=== PATIENT | female | born 2000 | race American Indian/Alaskan Native ===

== ENCOUNTER 2021-06-10 13:08 | Outpatient (CLI) | payer MEDICAID | END 2021-06-10 23:59 | disposition critical access hospital (66) | LOC: EMS 13:08 | DX: R41.0 Disorientation, unspecified (principal); R51.9 Headache, unspecified; M25.572 Pain in left ankle and joints of left foot; M25.532 Pain in left wrist; W18.2XXA Fall in (into) shower or empty bathtub, initial encounter; Y92.091 Bathroom in other non-institutional residence as the place of occurrence of the external cause | CPT/HCPCS: A0425; A0427; A0999 ==

== ENCOUNTER 2021-06-10 22:25 | Outpatient (CLI) | payer MEDICAID | END 2021-06-10 23:59 | disposition critical access hospital (66) | LOC: EMS 22:25 | DX: T65.91XA Toxic effect of unspecified substance, accidental (unintentional), initial encounter (principal) | CPT/HCPCS: A0425; A0429 ==

== ENCOUNTER 2021-06-10 22:44 | Emergency (ER) | payer MEDICAID ==
[2021-06-10] MEDS ORDERED: ONDANSETRON ODT 4 MG Prepack 2 TL PRN (22:48)
--- NOTE | 2021-06-10 22:51 | ED Physician Documentation ---
History of Present Illness - Stated complaint Stated Complaint: INGESTION OF HOT PACK JUICE - History obtained from History obtained from: Patient, EMS - Additonal information Additional information: Patient sent to the emergency department via EMS for chief complaint of exposure to contents of hot pack. The patient is staying [facility] and has a tooth that has been bothering her, so staff gave her a hot pack to use. However, it seems that when the box of hot packs was being cut open, a small cut occurred in the hot pack itself and the contents began to leak out onto the patient's cheek. She had her mouth open and a little bit of the contents also got on her tongue. The patient states that she immediately rinsed her mouth very well. Poison control was contacted and they stated that the contents were nontoxic and even if the whole packet was swallowed, the worst it would cause would be some nausea. However, the hospital nursing assistant of IT was wanted the patient sent to the emergency department anyway for evaluation. The patient states she is feeling completely fine. She has no symptoms whatsoever. No burning of her tongue. No nausea or abdominal pain. She has not vomited. No other complaints. Review of Systems Ten Systems: 10 systems reviewed and negative Constitutional: reports: Reviewed and negative Eyes: reports: Reviewed and negative Ears: reports: Reviewed and negative Nose: reports: Reviewed and negative Throat: reports: Reviewed and negative Cardiac: reports: Reviewed and negative Respiratory: reports: Reviewed and negative GI: reports: Reviewed and negative : reports: Reviewed and negative Skin: reports: Reviewed and negative Musculoskeletal: reports: Reviewed and negative Neurologic: reports: Reviewed and negative Psychiatric: reports: Reviewed and negative Endocrine: reports: Reviewed and negative Immunocompromised: reports: Reviewed and negative PD PAST MEDICAL HISTORY - Past Medical History Neuro: Seizure disorder - Allergies Allergies/Adverse Reactions: Allergies Allergy/AdvReac Type Severity Reaction Status Date / Time amoxicillin AdvReac Unknown Verified 06/10/21 13:41 Penicillins AdvReac Unknown Verified 06/10/21 13:41 - Social History Does the pt have substance abuse?: Yes PD ED PE NORMAL - Vitals Vital signs reviewed: Yes - General General: Alert and oriented X 3, No acute distress, Well developed/nourished - HEENT HEENT: Atraumatic, PERRL, EOMI, Moist mucous membranes, Other (No oral lesions) - Neck Neck: Supple, no meningeal sign - Cardiac Cardiac: RRR, No murmur - Respiratory Respiratory: No respiratory distress, Clear bilaterally - Abdomen Abdomen: Soft, Non tender, Non distended - Derm Derm: Normal color, Warm and dry, No rash - Extremities Extremities: No deformity - Neuro Neuro: Alert and oriented X 3 - Psych Psych: Normal mood, Normal affect Results - Vitals Vitals: Oxygen O2 Source Room air PD MEDICAL DECISION MAKING - ED course Complexity details: considered differential, d/w patient ED course: The patient was extremely well-appearing and had no complaints. As Poison Control had already evaluated the case and had reported that there is no toxic concern, I felt the patient was stable for discharge. I gave her a prepack of Zofran in case she gets nauseated later, although the likelihood of this is very low. We have discussed the usual indications for return. Departure - Departure Disposition: 01 Home, Self Care Clinical Impression: Chemical exposure Condition: Stable Comments: You have had a small exposure to the contents of the hot pack. Poison control has already evaluated the situation and there is no concern for toxicity. You have been given a prepack of oral dissolving Zofran in case you get nauseated later, although given that you did not actually ingest the contents, it is unlikely that you will even develop nausea. However, you may use these as directed if needed. Please go back to [facility] to continue your treatment.
[2021-06-10 22:52] VITALS: BP 120/81
== END 2021-06-10 23:35 | disposition home or self-care (01) ==
LOC: EDUNIT# → ED 22:44
DX: T65.91XA Toxic effect of unspecified substance, accidental (unintentional), initial encounter (principal)
CPT/HCPCS: 36415; 80053; 80306; 80307; 80320; 80329; 81001; 81003; 81025; 83690; 84443; 85025; 87086; 93005; 99282; 99283; 99284